=== PATIENT | female | born 1955 | race Two or more races ===

== ENCOUNTER 2020-07-13 20:01 | Emergency (ER) | payer OTHER, SELFPAY ==
[2020-07-13 20:10] VITALS: BP 148/78; PULSE 94; RESP 12; TEMP 36.7; O2SAT 98; BMI 19.0
--- NOTE | 2020-07-13 20:49 | HMH.EDUTC ---
[facility] [place] Disposition Clinical Impression: Cough due to ROBI inhibitor Disposition: Home, Self-Care Condition on Discharge: Good Instructions: Cough, DI for ROBI Inhibitor Cough Additional Instructions: stop robi benapril call aliza in am and ask about new bp med if symptoms worsen or no improvement return Referrals: Gualberto Amos MD [Primary Care Provider] - Time of Disposition: 21:01 Medical Decision Making - Jorge L Inquiry Pt receiving controlled substance: No Vital Signs: 07/13/20 20:10 Temperature 98.1 F Temperature Source Oral Pulse Rate [Right Brachial] 94 H Respiratory Rate 12 Blood Pressure [Right Arm] 148/78 H Blood Pressure Mean [Right Arm] 101 Blood Pressure Source [Right Arm] Automatic Cuff Blood Pressure Position [Right Arm] Sitting 02 Sat by Pulse Oximetry 98 Oxygen Delivery Method Room Air [facility] [place] HPI - General Chief complaint: Urgent [facility] Stated complaint: cough Time Seen by Provider: 07/13/20 20:49 Mode of Arrival: Ambulatory Source of Information: Patient Limitations: No Limitations Description of Symptoms (Recalled from Triage Doc. by RN): PATIENT C/O COUGH SINCE DECEMBER. WAS SEEN LAST MONTH AT [facility] AND GIVEN ANTIBIOTICS, BUT IS NOT BETTER HEENT Symptoms (Recalled from RN notes): No Resp Symptoms (Recalled from RN notes): Yes Skin Symptoms (Recalled from RN notes): No MS Symptoms (Recalled from RN notes): No Functional Status (Recalled from RN notes): WNL - History of Present Illness Provider Complaint: 65 yr old female presents for a dry cough and tickle in throat since dec. was given antibiotics last month but still no better. - Related Data Home Medications Medication Instructions Recorded Confirmed amlodipine 5 mg tablet 5 mg PO DAILY tab 06/13/20 06/18/20 aspirin 81 mg tablet,delayed 81 mg PO DAILY 06/13/20 06/18/20 release benazepril 10 mg tablet 10 mg PO DAILY tab 06/13/20 06/18/20 diclofenac sodium 75 mg tab PO 06/13/20 06/18/20 tablet,delayed release glipizide 5 mg tablet 5 mg PO DAILY tab 06/13/20 06/18/20 metformin 500 mg tablet 500 mg PO DAILY tab 06/13/20 06/18/20 simvastatin 20 mg/5 mL (4 mg/mL) 20 mg PO DAILY 06/13/20 06/18/20 oral suspension triamcinolone acetonide 0.1 % g TOPICAL 06/13/20 06/18/20 topical cream Previous Rx's Medication Instructions Recorded amoxicillin 500 mg capsule 500 mg PO Q12H 10 Days #20 cap 06/13/20 benzonatate 200 mg capsule 200 mg PO TID PRN 7 Days #21 cap 06/13/20 Allergies Allergy/AdvReac Type Severity Reaction Status Date / Time No Known Allergies Allergy Verified 06/18/20 12:47 - Worker's Comp Is this a Worker's Comp case?: No [facility] History - Hepatitis A Screen Drug use history?: No High risk sexual behaviors?: No History of sexually transmitted infection?: No Currently employed?: No Childcare worker?: No Do you have indoor plumbing?: Yes Do you have electricity?: Yes Attestation statement:: This patient has been screened for Hepatitis A risk factors. I have reviewed the patient's past medical history: Yes Medical History: Reports:: Diabetes Mellitus Type 2, Hypertension Denies:: Diabetes Mellitus Type 1, Internal Pacemaker Other Surgeries: Yes: No Previous Surgery. No: Pacemaker - Social History Smoking Status: Never smoker Alcohol Intake: never Occupational Status: other Household Members: spouse Family Hx:: Diabetes, Hypertension, Stroke ROS Obtained: Yes Systems reviewed as appropriate & no additional complaints - Constitutional Constitutional: Reports system reviewed and no additional complaints, except as docu, Denies fever(s) - Eyes Eyes: Reports system reviewed and no additional complaints, except as docu, Denies change in vision - ENT Ears, Nose, Mouth, and Throat: Reports system reviewed and no additional complaints, except as docu, Denies facial pain - Cardiovascular Cardiovascular: Reports system reviewed and no additional complaints, excep
[2020-07-13 21:02] VITALS: BP 148/78; PULSE 94; RESP 12; TEMP 36.7; O2SAT 98
== END 2020-07-13 21:03 | disposition home or self-care (01) ==
PROVIDERS: Emergency Provider Nurse Practitioner Family; PCP Family Medicine
DX: R05 Cough (principal); T46.4X5A Adverse effect of angiotensin-converting-enzyme inhibitors, initial encounter; E11.9 Type 2 diabetes mellitus without complications; I10 Essential (primary) hypertension; Z79.899 Other long term (current) drug therapy
CPT/HCPCS: 99202; G0463

== ENCOUNTER → 2020-10-19 08:09 | Outpatient (CLI) | payer OTHER, SELFPAY ==
--- NOTE | 2020-10-19 08:12 | US_ITS ---
PROCEDURE: US LIVER CLINICAL INDICATION: ABN LIVER FUNCTION COMPARISON: No exams were available for comparison FINDINGS: PANCREAS: Unremarkable. No obvious mass or abnormal fluid collection. No ductal dilatation LIVER: Diffuse increased echogenicity of the liver with poor through transmission of sound consistent with hepatic steatosis. No focal liver lesion demonstrated. There is appropriate direction of blood flow within non dilated portal vein. RIGHT KIDNEY: Unremarkable. Normal size and echogenicity. No hydronephrosis GALLBLADDER: Hyperechoic foci present within the gallbladder without shadowing which could be due to small nonshadowing stones or echo dense sludge. No gallbladder wall thickening pericholecystic fluid or biliary dilatation. IMPRESSION: 1. Fatty liver. 2. Hyperechoic foci within the gallbladder without shadowing and may be due to nonshadowing stones and/or sludge. Dictated by: Josh Webster MD 10/19/2020 11:39 Josh Webster MD in [place] 10/19/2020 11:39
== END ==
PROVIDERS: PCP Family Medicine; Visit Provider Family Medicine
DX: R94.5 Abnormal results of liver function studies (principal)
CPT/HCPCS: 76705

== ENCOUNTER 2020-12-13 10:10 | Emergency (ER) | payer OTHER, SELFPAY ==
[2020-12-13 10:17] VITALS: BP 144/74; PULSE 94; RESP 22; O2SAT 98; BMI 36.6
--- NOTE | 2020-12-13 10:33 | XR_ITS ---
PROCEDURE: XR SHOULDER RT MIN 2V CLINICAL INDICATION: pain COMPARISON: No exams were available for comparison FINDINGS: No fracture or dislocation. No lytic or blastic change. There is normal mineralization. There are mild osteoarthritic changes of the acromioclavicular and glenohumeral joint. Lobular calcification noted cephalad to the greater tuberosity measuring approximately 9 x 5 mm consistent with calcific tendinitis. Other findings:None. IMPRESSION: Osteoarthritic changes with calcific tendinitis the rotator cuff Dictated by: Josh Webster MD 12/13/2020 10:58 Josh Webster MD in [place] 12/13/2020 10:58
--- NOTE | 2020-12-13 11:11 | HMH.EDUTC ---
[facility] [place] Disposition Clinical Impression: Right shoulder pain Qualifiers: Chronicity: acute Qualified Code(s): M25.511 - Pain in right shoulder Osteoarthritis of right shoulder Qualifiers: Osteoarthritis type: unspecified Qualified Code(s): M19.011 - Primary osteoarthritis, right shoulder Disposition: Home, Self-Care Condition on Discharge: Good Instructions: DI for Osteoarthritis, DI for Shoulder Tendinopathy Additional Instructions: Rest the extremity for the next few days. Take the medications as directed. Follow up with Dr. Chun (orthopedics). Your shoulder x-ray shows that you have osteoarthritis in your shoulder and possible tendon injuries and issues. Usually this is a chronic issue that will keep flarigng up, so following up with an technical sales specialist is always the best plan. I put in a referral but you need to call his office and schedule an appointment. Follow up with your regular doctor. GO TO THE ER FOR ANY WORSENING SYMPTOMS Prescriptions: Cyclobenzaprine HCl [Cyclobenzaprine 10mg Tab] 10 mg PO BIDP PRN #20 tab PRN Reason: Muscle Spasm Transmission Status: Received by [id number] methylPREDNISolone [Medrol] 4 mg PO DIRECTED 6 Days #21 packet Transmission Status: Received by [id number] Referrals: Gualberto Amos MD [Primary Care Provider] - Dar Chun MD [Staff Physician] - Forms: Work/School Release Time of Disposition: 11:16 Medical Decision Making - Medical Records Medical records reviewed: No: I reviewed the patient's medical records. - Jorge L Inquiry Pt receiving controlled substance: No Vital Signs: 12/13/20 10:17 12/13/20 11:20 Temperature 98.1 F Pulse Rate 94 H Pulse Rate [Left] 94 H Respiratory Rate 22 20 Blood Pressure 144/74 H Blood Pressure [Right Arm] 144/74 H Blood Pressure Mean [Right Arm] 97 02 Sat by Pulse Oximetry 98 - Radiology Data #1 Image(s): Shoulder Image Reviewed: Yes I reviewed the patient's radiology image, Yes I have reviewed radiologist's interpretation Preliminary Findings: Abnormal PROCEDURE: XR WRIST RT MIN 3V CLINICAL INDICATION: punched something COMPARISON: No exams were available for comparison FINDINGS: No fracture or dislocation. No lytic or blastic change. There is normal mineralization. The joint spaces are well-preserved. No significant degenerative/arthritic changes. No erosive changes evident. Other findings:None. IMPRESSION: No acute findings. Dictated by: Josh Webster MD 12/13/2020 16:07 Josh Webster MD in [place] 12/13/2020 16:07 [facility] [place] HPI - General Stated complaint: right shoulder pain Time Seen by Provider: 12/13/20 11:11 Mode of Arrival: Ambulatory Source of Information: Patient Limitations: No Limitations Description of Symptoms (Recalled from Triage Doc. by RN): pt c/o of R shoulder pain that has kept her up all night. pt states the pain radiates into her R chest. pt states she injured her R shoulder about a year ago from a fall. this flares up at times. However, the pt states this pain is different and worse. pt is soa but states this has been ongoing for a few years when she walks a lot. HEENT Symptoms (Recalled from RN notes): No Resp Symptoms (Recalled from RN notes): Yes (soa) Skin Symptoms (Recalled from RN notes): No MS Symptoms (Recalled from RN notes): Yes (R shoulder pain radiating into her chest) Functional Status (Recalled from RN notes): na - History of Present Illness Provider Complaint: She c/o right shoulder pain with certain movement. She denies any recent injuries. She denies any chest pain. - Related Data Home Medications Medication Instructions Recorded Confirmed amlodipine 5 mg tablet 5 mg PO DAILY tab 06/13/20 06/18/20 aspirin 81 mg tablet,delayed 81 mg PO DAILY 06/13/20 06/18/20 release benazepril 10 mg tablet 10 mg PO DAILY tab 06/13/20 06/18/20 diclofenac sodium 75 mg tab PO 06/13/20 06/18/20 tablet,delayed re
[2020-12-13 11:20] VITALS: BP 144/74; PULSE 94; RESP 20; TEMP 36.7
== END 2020-12-13 11:32 | disposition home or self-care (01) ==
PROVIDERS: Emergency Provider Nurse Practitioner Family; PCP Family Medicine
DX: M25.511 Pain in right shoulder (principal); M19.011 Primary osteoarthritis, right shoulder; I10 Essential (primary) hypertension; E11.9 Type 2 diabetes mellitus without complications; Z79.899 Other long term (current) drug therapy
CPT/HCPCS: 73030; 99202; G0463

== ENCOUNTER 2021-02-01 12:23 | Emergency (ER) | payer OTHER, SELFPAY ==
--- NOTE | 2021-02-01 14:50 | HMH.EDUTC ---
[facility] [place] Disposition Clinical Impression: Lichen planus Disposition: Home, Self-Care Condition on Discharge: Good Instructions: Lichen Planus, Betamethasone Topical, DI for Lichen Planus Additional Instructions: Don't put the topical steroids (triamcinolone) on your face or your groin. Only put it on the affected areas on your legs as directed. Follow up with your regular doctor. GO TO THE ER FOR ANY WORSENING SYMPTOMS OR CONCERNS Prescriptions: Betamethasone Dipropionate 1 applicatio TP BID 10 Days #15 gm Transmission Status: Received by [id number] Referrals: Gualberto Amos MD [Primary Care Provider] - Time of Disposition: 15:15 Medical Decision Making - Medical Records Medical records reviewed: No: I reviewed the patient's medical records. - Jorge L Inquiry Pt receiving controlled substance: No Vital Signs: 02/01/21 15:17 02/01/21 15:20 Temperature 98.2 F 98.2 F Temperature Source Oral Pulse Rate 88 Pulse Rate [Left] 88 Respiratory Rate 16 16 Blood Pressure 171/78 H Blood Pressure [Right Arm] 171/78 H Blood Pressure Mean [Right Arm] 109 02 Sat by Pulse Oximetry 98 [facility] [place] HPI - General Stated complaint: leg pain, no recent accident Time Seen by Provider: 02/01/21 14:50 - History of Present Illness Provider Complaint: She states that she has a rash on the front of both her legs that has been present for a while now. Her pcp usually gives her a steroid cream to treat it when it gets worse like it is now, but she has been unable to get in her pcp. - Related Data Home Medications Medication Instructions Recorded Confirmed amlodipine 5 mg tablet 5 mg PO DAILY tab 06/13/20 06/18/20 aspirin 81 mg tablet,delayed 81 mg PO DAILY 06/13/20 06/18/20 release benazepril 10 mg tablet 10 mg PO DAILY tab 06/13/20 06/18/20 diclofenac sodium 75 mg tab PO 06/13/20 06/18/20 tablet,delayed release glipizide 5 mg tablet 5 mg PO DAILY tab 06/13/20 06/18/20 metformin 500 mg tablet 500 mg PO DAILY tab 06/13/20 06/18/20 simvastatin 20 mg/5 mL (4 mg/mL) 20 mg PO DAILY 06/13/20 06/18/20 oral suspension triamcinolone acetonide 0.1 % g TOPICAL 06/13/20 06/18/20 topical cream Previous Rx's Medication Instructions Recorded amoxicillin 500 mg capsule 500 mg PO Q12H 10 Days #20 cap 06/13/20 benzonatate 200 mg capsule 200 mg PO TID PRN 7 Days #21 cap 06/13/20 Cyclobenzaprine HCl 10 mg PO BIDP PRN #20 tab 12/13/20 [Cyclobenzaprine 10mg Tab] methylPREDNISolone [Medrol] 4 mg PO DIRECTED 6 Days #21 12/13/20 packet Betamethasone Dipropionate 1 applicatio TP BID 10 Days #15 gm 02/01/21 Allergies Allergy/AdvReac Type Severity Reaction Status Date / Time No Known Allergies Allergy Verified 06/18/20 12:47 [facility] History - Hepatitis A Screen Attestation statement:: This patient has been screened for Hepatitis A risk factors. I have reviewed the patient's past medical history: Yes Medical History: Reports:: Diabetes Mellitus Type 2, Hypertension Denies:: Diabetes Mellitus Type 1, Internal Pacemaker Other Surgeries: Yes: No Previous Surgery. No: Pacemaker - Social History Smoking Status: Never smoker Alcohol Intake: never Occupational Status: other Household Members: spouse Family Hx:: Diabetes, Hypertension, Stroke ROS Obtained: Yes All systems reviewed & no additional complaints - Constitutional Constitutional: Denies chills, Denies fever(s) - Eyes Eyes: Denies eye discharge - Cardiovascular Cardiovascular: Denies chest pain - Respiratory Respiratory: Denies chest congestion, Denies cough, Denies dyspnea, Denies coughing up blood, Denies stridor, Denies wheezing - Gastrointestinal Gastrointestingal: Denies: abdominal pain, diarrhea, nausea, vomiting - Musculoskeletal Musculoskeletal: Denies joint pain, Denies back pain, Denies neck pain - Integumentary/Breasts Skin/Breast: Reports as per HPI Physical Exam - General General appearance:
[2021-02-01 15:17] VITALS: BP 171/78; PULSE 88; RESP 16; TEMP 36.8
[2021-02-01 15:20] VITALS: BP 171/78; PULSE 88; RESP 16; TEMP 36.8; O2SAT 98; BMI 37.8
== END 2021-02-01 15:39 | disposition home or self-care (01) ==
PROVIDERS: Emergency Provider Nurse Practitioner Family; PCP Family Medicine
DX: L43.9 Lichen planus, unspecified (principal); I10 Essential (primary) hypertension
CPT/HCPCS: 99202; G0463

== ENCOUNTER → 2021-05-28 11:43 | Outpatient (CLI) | payer MEDICARE, OTHER, SELFPAY | PROVIDERS: PCP Family Medicine; Visit Provider Family Medicine | DX: Z20.822 Contact with and (suspected) exposure to COVID-19 (principal) | CPT/HCPCS: C9803; U0003; U0005 ==